=== PATIENT | female | born 1965 | race African-American/Black ===

== ENCOUNTER 2017-01-17 12:02 | Inpatient (IN) | payer OTHER ==
[2017-01-17 13:58] VITALS: BMI 21.5
--- NOTE | 2017-01-17 16:49 | HP ---
[id number] Restless Observation: 1= Difficult to Sit Still Pupil Size: 1= Pupils >than Normal Bone or Joint Aches: 2= Severe Diffuse Aches Runny Nose/ Eye Tearin= Runny Nose/Eyes GI Upset > 30mins: 2= Nausea/Diarrhea Tremor Observation: 2= Slight Tremor Visible Yawning Observation: 0= None Anxiety or Irritability: 2=Irritable/Anxious Goose Flesh Skin: 0=Smooth Skin COWS Score: 13 CIWA Score - CIWA Score Nausea/Vomitin-Mild Nausea/No Vomiting Muscle Tremors: 3 Anxiety: 3 Agitation: 3 Paroxysmal Sweats: 1-Minimal Palms Moist Orientation: 2-Disoriented Date<2 days Tacttile Disturbances: 0-None Auditory Disturbances: 0-None Visual Disturbances: 0-None Headache: 1-Very Mild CIWA-Ar Total Score: 14 Admission ROS S - HPI Chief Complaint: withdrawal sx Allergies/Adverse Reactions: Allergies Allergy/AdvReac Type Severity Reaction Status Date / Time No Known Allergies Allergy Verified 01/17/17 16:40 History of Present Illness: 51 years old female with long history of opiate cocaine nicotine dependence has hypertension treated with unknown medication last dose "3months" ago, has depression is admitted to detox Exam Limitations: No Limitations - Ebola screening Have you traveled outside of the country in the last 21 days: No Have you had contact with anyone from an Ebola affected area: No Have you been sick,other than usual withdrawal symptoms: No Do you have a fever: No - Review of Systems Constitutional: Chills, Loss of Appetite, Changes in sleep, Unintentional Wgt. Loss, Unexplained wgt Loss EENT: reports: Other (needed reading eye glasses) Respiratory: reports: SOB with Exertion Cardiac: reports: No Symptoms Reported GI: reports: Diarrhea, Nausea, Poor Appetite, Poor Fluid Intake, Abdominal cramping : reports: No Symptoms Reported Musculoskeletal: reports: Back Pain, Joint Pain, Muscle Pain, Neck Pain Integumentary: reports: Change in Color (eczema) Neuro: reports: Tremors Endocrine: reports: No Symptoms Reported Hematology: reports: No Symptoms Reported Psychiatric: reports: Judgement Intact, Orientated x3, Depressed Other Systems: Reviewed and Negative Patient History - Patient Medical History Hx Anemia: No Hx Asthma: No Hx Chronic Obstructive Pulmonary Disease (COPD): No Hx Cancer: No Hx Cardiac Disorders: No Hx Congestive Heart Failure: No Hx Hypertension: Yes (135/111 last dose 3 months ago) Hx Hypercholesterolemia: No Hx Pacemaker: No HX Cerebrovascular Accident: No Hx Seizures: No Hx Dementia: No Hx Diabetes: No Hx Gastrointestinal Disorders: No Hx Liver Disease: No Hx Genitourinary Disorders: No Hx Sexually Transmitted Disorders: No Hx Renal Disease (ESRD): No Hx Thyroid Disease: No Hx Human Immunodeficiency Virus (HIV): No Hx Hepatitis C: No Hx Depression: Yes Hx Suicide Attempt: No Hx Bipolar Disorder: No Hx Schizophrenia: No - Patient Surgical History Past Surgical History: Yes Hx Neurologic Surgery: No Hx Cataract Extraction: No Hx Cardiac Surgery: No Hx Lung Surgery: No Hx Breast Surgery: No Hx Breast Biopsy: No Hx Abdominal Surgery: No Hx Appendectomy: No Hx Cholecystectomy: No Hx Genitourinary Surgery: No Hx Section: Yes (x2) Hx Orthopedic Surgery: No Anesthesia Reaction: No - PPD History Previous Implant?: Yes Documented Results: Negative w/o proof Implanted On Prior R Admission?: No PPD to be Administered?: Yes - Reproductive History Patient is a Female of Child Bearing Age (11 -55 yrs old): Yes Last Menstrual Period: 01/12/17 Patient : No - Smoking Cessation Smoking history: Current every day smoker Have you smoked in the past 12 months: Yes Aproximately how many cigarettes per day: 5 Cigars Per Day: 0 Hx Chewing Tobacco Use: No Initiated information on smoking cessation: Yes 'Breaking Loose' booklet given: 01/17/17 - Substance & Tx. History Hx Alcohol Use: Yes Hx Substance Use: Yes Substance Use Type: Alcohol, Cocaine, Heroin Hx Substance Use Treatment: Yes - Substances Abused Alcohol Route: Oral Frequency: Daily Amount used: 2 pints whisky Age of first use: 51 Date of Last Use: 01/16/17 Heroin Route: Inhalation Frequency: Daily Amount used: 10 bags Age of first use: 30 Date of Last Use: 01/17/17 Cocaine Route: Smoking Frequency: Daily Amount used: 20$ Age of first use: 20 Date of Last Use: 01/16/17 Family Disease History - Family Disease History Family Disease History: Diabetes: Mother (), Heart Disease: Mother, CA: Mother, Respiratory: Brother, Other: Father (no contact) Admission Physical Exam BHS - Vital Signs Vital Signs: Vital Signs - 24 hr 01/17/17 13:55 Temperature 96.8 F L Pulse Rate 72 Respiratory 18 Rate Blood Pressure 135/111 - Physical General Appearance: Yes: Appropriately Dressed, Mild Distress, Thin, Tremorous, Irritable, Sweating, Anxious HEENTM: Yes: Hearing grossly Normal, Normal ENT Inspection, Normocephalic, Normal Voice Respiratory: Yes: Chest Non-Tender, No Respiratory Distress, No Accessory Muscle Use, Hyperresonant, Inspiration Neck: Yes: Supple, Trachea in good position Breast: Yes: Breasts Symetrical Cardiology: Yes: Regular Rhythm, Regular Rate, S1, S2 Abdominal: Yes: Non Tender, Soft Genitourinary: Yes: Within Normal Limits Back: Yes: Normal Inspection Musculoskeletal: Yes: full range of Motion, Gait Steady, Back pain Extremities: Yes: Normal Range of Motion, Non-Tender, Tremors Neurological: Yes: Alert, Motor Strength 5/5, Depressed Affect Integumentary: Yes: Warm, Clammy, Other (eczema) Lymphatic: Yes: Within Normal Limits - Diagnostic (1) Alcohol dependence with uncomplicated withdrawal Current Visit: Yes Status: Acute (2) Opioid dependence with withdrawal Current Visit: Yes Status: Acute (3) Cocaine dependence, uncomplicated Current Visit: Yes Status: Chronic (4) Eczema Current Visit: Yes Status: Chronic Qualifiers: Eczema type: flexural Qualified Code(s): L20.82 - Flexural eczema (5) Dry skin Current Visit: Yes Status: Acute (6) History of hypertension Current Visit: Yes Status: Resolved (7) COPD (chronic obstructive pulmonary disease) Current Visit: Yes Status: Chronic Qualifiers: COPD type: emphysema Emphysema type: other Qualified Code(s): 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 - Other emphysema (8) Nicotine dependence Current Visit: Yes Status: Acute Qualifiers: Nicotine product type: cigarettes Substance use status: in withdrawal Qualified Code(s): F17.213 - Nicotine dependence, cigarettes, with withdrawal (9) Weight loss Current Visit: Yes Status: Acute (10) Depression (emotion) Current Visit: Yes Status: Suspected Qualifiers: Depression Type: dysthymia Qualified Code(s): F34.1 - Dysthymic disorder Cleared for Admission [facility] - Detox or Rehab [facility] Level of Care: Medically Managed Detox Regimen/Protocol: Methadone/Librium [facility] Breath Alcohol Content Breath Alcohol Content: 0 Urine Pregancy Test - Result Urine Test Results: Negative- NO Line Present Urine Drug Screen - Results Drug Screen Negative: No Urine Drug Screen Results: MARGARET-Cocaine, OPI-Opiates
[2017-01-17] MEDS ORDERED: diphenhydrAMINE HCL 50 MG CAPSULE PO PRN (17:06)
[2017-01-17] MEDS ORDERED: MAGNESIUM CITRATE 300 ML BOTTLE PO PRN (17:06)
[2017-01-17] MEDS ORDERED: MAGNESIUM HYDROX 2400MG/30ML ORAL SUSPENSION 30 ML CUP PO PRN (17:06)
[2017-01-17] MEDS ORDERED: LOPERAMIDE HCL 2 MG CAPSULE PO PRN (17:06)
[2017-01-17] MEDS ORDERED: MAG HYDROX/AL HYDROX/SIMETH 30 ML UNIT-DOSE CUP PO PRN (17:06)
[2017-01-17] MEDS ORDERED: MENTHOL/PHENOL 1 EACH UD MM PRN (17:06)
[2017-01-17] MEDS ORDERED: P-EPHED 60MG/TRIPROLIDI 2.5MG TABLET PO PRN (17:06)
[2017-01-17] MEDS ORDERED: guaiFENesin/D-METHORPHAN HB 10 ML UNIT-DOSE CUPS PO PRN (17:06)
[2017-01-17] MEDS ORDERED: IBUPROFEN 400 MG TABLET (FP) PO PRN (17:06)
[2017-01-17] MEDS ORDERED: ACETAMINOPHEN 325 MG TABLET (FP) PO PRN (17:06)
[2017-01-17] MEDS ORDERED: NICOTINE POLACRILEX 2 MG GUM BC PRN (17:06)
[2017-01-17] MEDS ORDERED: COLLOIDAL OATMEAL 1 BAR EACH TP PRN (17:09)
[2017-01-17] MEDS: chlordiazePOXIDE HCL 25 MG CAPSULE PO PRN (18:40)
[2017-01-17] MEDS ORDERED: METHADONE HCL 10 MG TABLET (FOR DETOX USE ONLY) PO ONE ×2 (19:00→23:00)
[2017-01-17 20:03] LABS: URINE APPEARANCE CLEAR; URINE BILIRUBIN NEGATIVE (NEGATIVE); URINE BLOOD NEGATIVE (NEGATIVE); URINE COLOR YELLOW; URINE GLUCOSE (UA) NEGATIVE (NEGATIVE); URINE KETONE NEGATIVE (NEGATIVE); URINE LEUK ESTERASE NEGATIVE (NEGATIVE); URINE NITRITE NEGATIVE (NEGATIVE); URINE PROTEIN NEGATIVE (NEGATIVE); URINE UROBILINOGEN 2.0 E.U/dl E.U./dl (0.2-1.0)
[2017-01-17] MEDS: chlordiazePOXIDE HCL 25 MG CAPSULE PO SCH (22:31)
[2017-01-17] MEDS: TRIAMCINOLONE ACET 0.1% OINT 15 GM TUBE TP SCH ×2 (22:32→23:33)
[2017-01-17] MEDS: MINERAL OIL/PETROLAT/WATER TOPICAL CREAM 454 GM JAR TP SCH (22:32)
[2017-01-17] MEDS: THIAMINE HCL 100 MG TABLET (FP) PO SCH (22:37)
[2017-01-18] MEDS ORDERED: METHADONE HCL 10 MG TABLET (FOR DETOX USE ONLY) PO ONE (10:00)
[2017-01-18] MEDS ORDERED: VALSARTAN 80 MG TABLET (UD) PO SCH (10:00)
[2017-01-18] MEDS: PRENATAL VITAMINS W/ FOLIC ACID TABLET (FP) PO SCH (10:49)
[2017-01-18] MEDS: chlordiazePOXIDE HCL 25 MG CAPSULE PO SCH ×4 (10:49→22:30)
[2017-01-18] MEDS: TRIAMCINOLONE ACET 0.1% OINT 15 GM TUBE TP SCH ×3 (10:50→22:29)
--- NOTE | 2017-01-18 11:25 | EKG ---
Test Reason : Blood Pressure : / mmHG Vent. Rate : 069 BPM Atrial Rate : 069 BPM P-R Int : 154 ms QRS Dur : 082 ms QT Int : 420 ms P-R-T Axes : 069 053 051 degrees QTc Int : 450 ms NORMAL SINUS RHYTHM POOR DATA QUALITY, INTERPRETATION MAY BE ADVERSELY AFFECTED Confirmed by KENDRA HIGUERA MD ([id number]) on 01/18/2017 11:25:10 AM Referred By: Rajendra Beltrán Confirmed By:KENDRA HIGUERA MD
[2017-01-18 11:33] LABS: ALBUMIN 4.2 g/dl (3.4-5.0); BILIRUBIN,TOTAL 0.5 mg/dL (0.2-1.0); CALCIUM 9.8 mg/dL (8.5-10.1); COCKROFT - GAULT 69.8785
[2017-01-18 11:34] LABS: MCH 31.2 pg (25.7-33.7); MCHC 32.9 g/dl (32.0-36.0); MEAN CELL VOLUME 94.9 fl (80-96); MEAN PLT VOLUME 9.5 fl (7.5-11.1); PLATELET COUNT 258 K/MM3 (134-434); RDW 13.6 % (11.6-15.6); WHITE BLOOD COUNT 11.3 K/mm3 (4.0-10.0)
[2017-01-18] MEDS: NICOTINE 14 MG/24 HOURS TOPICAL PATCH TD SCH (12:59)
[2017-01-18] MEDS: chlordiazePOXIDE HCL 25 MG CAPSULE PO PRN (13:00)
--- NOTE | 2017-01-18 13:06 | CONSULT ---
[facility] Psychiatric Consult - Data Date of interview: 01/18/17 Admission source: [facility] Identifying data: First admission to [facility] for this 51 y/o AA female seeking detox treatment at [address] [place] [address] for alcohol,cocaine and heroin dependence.Patient is ,a mother of five,domiciled,unemployed and supported on [facility] benefits. Substance Abuse History: - Smoking Cessation. Smoking history: Current every day smoker. Have you smoked in the past 12 months: Yes. Aproximately how many cigarettes per day: 5. Cigars Per Day: 0. Hx Chewing Tobacco Use: No. Initiated information on smoking cessation: Yes. 'Breaking Loose' booklet given : 01/17/17. - Substance & Tx. History. Hx Alcohol Use: Yes. Hx Substance Use : Yes. Substance Use Type: Alcohol, Cocaine, Heroin. Hx Substance Use Treatment: Yes. - Substances Abused. Alcohol. Route: Oral. Frequency: Daily. Amount used: 2 pints whisky. Age of first use: 51. Date of Last Use: 01/16/17. Heroin. Route: Inhalation. Frequency: Daily. Amount used: 10 bags. Age of first use: 30. Date of Last Use: 01/17/17. Cocaine. Route: Smoking. Frequency: Daily. Amount used: 20$. Age of first use: 20. Date of Last Use: 01/16/17. Confirmed by patient. Medical History: Hypertension and a history of two sections. Psychiatric History: Patient denies.No history of exposure to psychotropic medications.Mr Andrade denies prior contact with mental healthcare providers.No reported history of suicide attempts. Physical/Sexual Abuse/Trauma History: Patient denies. Additional Comment: Urine Drug Screen Results: MARGARET-Cocaine, OPI-Opiates.Noted. Mental Status Exam - Mental Status Exam Alert and Oriented to: Time, Place, Person Cognitive Function: Good Patient Appearance: Well Groomed (tall stature) Mood: Anxious, Apprehensive Affect: Mood Congruent Patient Behavior: Fatigued, Cooperative (medication-seeking; pressuring this card writer hand for benzodiazepine or ambien dose above 10 mg ) Speech Pattern: Clear Voice Loudness: Normal Thought Process: Goal Oriented Thought Disorder: Not Present Hallucinations: Denies Suicidal Ideation: Denies Homicidal Ideation: Denies Insight/Judgement: Poor Sleep: Poorly, Difficulty falling asleep Appetite: Good Muscle strength/Tone: Normal Gait/Station: Normal Psychiatric Findings - Problem List ([place] 1, 2,3) (1) Alcohol dependence with uncomplicated withdrawal Current Visit: Yes Status: Acute (2) Opioid dependence with withdrawal Current Visit: Yes Status: Acute (3) Cocaine dependence, uncomplicated Current Visit: Yes Status: Acute (4) Nicotine dependence Current Visit: Yes Status: Acute Qualifiers: Nicotine product type: cigarettes Substance use status: in withdrawal Qualified Code(s): F17.213 - Nicotine dependence, cigarettes, with withdrawal (5) Substance induced mood disorder Current Visit: Yes Status: Acute (6) COPD (chronic obstructive pulmonary disease) Current Visit: Yes Status: Chronic Qualifiers: COPD type: emphysema Emphysema type: other Qualified Code(s): 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
--- NOTE | 2017-01-18 13:14 | PN ---
S CIWA - CIWA Score Nausea/Vomitin Muscle Tremors: 4-Moderate,w/Arms Extend Anxiety: 4-Mod. Anxious/Guarded Agitation: 1-Slight > Activity Paroxysmal Sweats: 4-Forehead w/Sweat Beads Orientation: 0-Oriented Tacttile Disturbances: 1-Very Mild Itch/Numbness Auditory Disturbances: 0-None Visual Disturbances: 3-Moderate Sensitivity Headache: 0-None Present CIWA-Ar Total Score: 19 BHS COWS - Scale Resting Pulse: 0= [place] 80 or Below Sweatin=Flushed/Facial Moisture Restless Observation: 0= Sits Still Pupil Size: 0= Normal to Room Light Bone or Joint Aches: 2= Severe Diffuse Aches Runny Nose/ Eye Tearin= Nasal Congestion GI Upset > 30mins: 2= Nausea/Diarrhea Tremor Observation of Outstretched Hands: 2= Slight Tremor Visible Yawning Observation: 1= 1-2x During Session Anxiety or Irritability: 2=Irritable/Anxious Goose Flesh Skin: 0=Smooth Skin COWS Score: 12 S Progress Note (SOAP) Subjective: Sweating, Poor Appetite, Tremors. Objective: PT. A & O X 3, OBSERVED AMBULATING ON UNIT. 01/18/17 13:10 Vital Signs Temperature 100 F H 01/18/17 12:00 Pulse Rate 76 01/18/17 12:00 Respiratory Rate 20 01/18/17 12:00 Blood Pressure 153/98 01/18/17 12:00 O2 Sat by Pulse Oximetry (%) Laboratory Last Values WBC 11.3 K/mm3 (4.0-10.0) H 01/18/17 06:00 RBC 4.49 M/mm3 (3.60-5.2) 01/18/17 06:00 Hgb 14.0 GM/dL (10.7-15.3) 01/18/17 06:00 Hct 42.6 % (32.4-45.2) 01/18/17 06:00 MCV 94.9 fl (80-96) 01/18/17 06:00 MCHC 32.9 g/dl (32.0-36.0) 01/18/17 06:00 RDW 13.6 % (11.6-15.6) 01/18/17 06:00 Plt Count 258 K/MM3 (134-434) 01/18/17 06:00 MPV 9.5 fl (7.5-11.1) 01/18/17 06:00 Sodium 141 mmol/L (136-145) 01/18/17 06:00 Potassium 4.2 mmol/L (3.5-5.1) 01/18/17 06:00 Chloride 103 mmol/L (98-107) 01/18/17 06:00 Carbon Dioxide 30 mmol/L (21-32) 01/18/17 06:00 Anion Gap 8 (8-16) 01/18/17 06:00 BUN 13 mg/dL (7-18) 01/18/17 06:00 Creatinine 1.0 mg/dL (0.55-1.02) 01/18/17 06:00 Creat Clearance w eGFR 58.00 (>60) 01/18/17 06:00 Random Glucose 58 mg/dL (74-106) L 01/18/17 06:00 Calcium 9.8 mg/dL (8.5-10.1) 01/18/17 06:00 Total Bilirubin 0.5 mg/dL (0.2-1.0) 01/18/17 06:00 AST 12 U/L (15-37) L 01/18/17 06:00 ALT 20 U/L (12-78) 01/18/17 06:00 Alkaline Phosphatase 71 U/L (45-117) 01/18/17 06:00 Total Protein 8.0 g/dl (6.4-8.2) 01/18/17 06:00 Albumin 4.2 g/dl (3.4-5.0) 01/18/17 06:00 Urine Color Yellow 01/17/17 19:30 Urine Appearance Clear 01/17/17 19:30 Urine pH 6.0 (5.0-8.0) 01/17/17 19:30 Ur Specific [place] 1.024 (1.001-1.035) 01/17/17 19:30 Urine Protein Negative (NEGATIVE) 01/17/17 19:30 Urine Glucose (UA) Negative (NEGATIVE) 01/17/17 19:30 Urine Ketones Negative (NEGATIVE) 01/17/17 19:30 Urine Blood Negative (NEGATIVE) 01/17/17 19:30 Urine Nitrite Negative (NEGATIVE) 01/17/17 19:30 Urine Bilirubin Negative (NEGATIVE) 01/17/17 19:30 Urine Urobilinogen 2.0 e.u/dl E.U./dl (0.2-1.0) H 01/17/17 19:30 Ur Leukocyte Esterase Negative (NEGATIVE) 01/17/17 19:30 RPR Titer Nonreactive (NONREACTIVE) 01/18/17 06:00 LABS NOTED. Assessment: 01/18/17 13:11 WITHDRAWAL SYMPTOMS. Plan: CONTINUE DETOX. PT. PREVIOUSLY PRESCRIBED DIOVAN PRIOR TO CURRENT ADMISSION TO DETOX; HOWEVER, SHE REPORTS THAT SHE HAS NOT TAKEN IT FOR THE LAST THREE MONTHS. RE-START DIOVAN AT 80 MG PO DAILY AND CONTINUE TO OBSERVE BP. ADVISED PATIENT TO FOLLOW-UP WITH TOOL ADJUSTER / REHAB MEDICAL PROVIDER AFTER DISCHARGE FROM DETOX FOR GENERAL MEDICAL ASSESSMENT AND FOR ABNORMAL ADMISSION LAB VALUES.
[2017-01-18] MEDS ORDERED: ZOLPIDEM TARTRATE 10 MG TABLET (PARK CARE ONLY) PO PRN (15:50)
[2017-01-18] MEDS: THIAMINE HCL 100 MG TABLET (FP) PO SCH (22:29)
[2017-01-18] MEDS: MINERAL OIL/PETROLAT/WATER TOPICAL CREAM 454 GM JAR TP SCH (22:30)
[2017-01-19] MEDS: chlordiazePOXIDE HCL 25 MG CAPSULE PO SCH ×2 (06:10→11:13)
[2017-01-19] MEDS ORDERED: hydrOXYzine PAMOATE 50 MG CAPSULE (FP) PO PRN (07:05)
[2017-01-19] MEDS ORDERED: cloNIDine HCL 0.1 MG TABLET PO ONE (07:27)
[2017-01-19] MEDS ORDERED: CYCLOBENZAPRINE HCL 10 MG TABLET (FP) PO ONE (07:27)
--- NOTE | 2017-01-19 07:34 | PN ---
S Progress Note Note: withdrawal symptom,pain in the body,back,anxious clonidine 0.1 mg po now then bid flexeril 10 mgs po now then tid prn continue detox methadone and librium.vital signs monitoring
[2017-01-19] MEDS ORDERED: METHADONE HCL 5 MG TABLET (FOR DETOX USE ONLY) PO ONE (10:00)
[2017-01-19] MEDS ORDERED: cloNIDine HCL 0.1 MG TABLET PO SCH (10:00)
[2017-01-19] MEDS ORDERED: VALSARTAN 160 MG TABLET (UD) PO SCH (10:45)
[2017-01-19 10:54] VITALS: BP 134/99; PULSE 86; TEMP 98.2
[2017-01-19] MEDS: TRIAMCINOLONE ACET 0.1% OINT 15 GM TUBE TP SCH ×2 (11:12→11:32)
[2017-01-19] MEDS: PRENATAL VITAMINS W/ FOLIC ACID TABLET (FP) PO SCH (11:12)
[2017-01-19] MEDS: NICOTINE 14 MG/24 HOURS TOPICAL PATCH TD SCH (11:14)
--- NOTE | 2017-01-19 17:37 | DS ---
[facility] Detox Discharge Summary Admission Date: 01/17/17 Discharge Date: 01/19/17 - History Present History: Alcohol Dependence, Cocaine Dependence, Opioid Dependence Additional Comments: ADVISED PATIENT TO FOLLOW-UP WITH [facility] FOR GENERAL MEDICAL ASSESSMENT. Pertinent Past History: HTN, Depression, COPD (Emphysema), Eczema. - Physical Exam Results Vital Signs: Vital Signs Temperature 98.2 F 01/19/17 10:53 Pulse Rate 86 01/19/17 10:53 Respiratory Rate 18 01/19/17 10:53 Blood Pressure 134/99 01/19/17 10:53 O2 Sat by Pulse Oximetry (%) Pertinent Admission Physical Exam Findings: WITHDRAWAL SYMPTOMS. Laboratory Last Values WBC 11.3 K/mm3 (4.0-10.0) H 01/18/17 06:00 RBC 4.49 M/mm3 (3.60-5.2) 01/18/17 06:00 Hgb 14.0 GM/dL (10.7-15.3) 01/18/17 06:00 Hct 42.6 % (32.4-45.2) 01/18/17 06:00 MCV 94.9 fl (80-96) 01/18/17 06:00 MCHC 32.9 g/dl (32.0-36.0) 01/18/17 06:00 RDW 13.6 % (11.6-15.6) 01/18/17 06:00 Plt Count 258 K/MM3 (134-434) 01/18/17 06:00 MPV 9.5 fl (7.5-11.1) 01/18/17 06:00 Sodium 141 mmol/L (136-145) 01/18/17 06:00 Potassium 4.2 mmol/L (3.5-5.1) 01/18/17 06:00 Chloride 103 mmol/L (98-107) 01/18/17 06:00 Carbon Dioxide 30 mmol/L (21-32) 01/18/17 06:00 Anion Gap 8 (8-16) 01/18/17 06:00 BUN 13 mg/dL (7-18) 01/18/17 06:00 Creatinine 1.0 mg/dL (0.55-1.02) 01/18/17 06:00 Creat Clearance w eGFR 58.00 (>60) 01/18/17 06:00 Random Glucose 58 mg/dL (74-106) L 01/18/17 06:00 Calcium 9.8 mg/dL (8.5-10.1) 01/18/17 06:00 Total Bilirubin 0.5 mg/dL (0.2-1.0) 01/18/17 06:00 AST 12 U/L (15-37) L 01/18/17 06:00 ALT 20 U/L (12-78) 01/18/17 06:00 Alkaline Phosphatase 71 U/L (45-117) 01/18/17 06:00 Total Protein 8.0 g/dl (6.4-8.2) 01/18/17 06:00 Albumin 4.2 g/dl (3.4-5.0) 01/18/17 06:00 Urine Color Yellow 01/17/17 19:30 Urine Appearance Clear 01/17/17 19:30 Urine pH 6.0 (5.0-8.0) 01/17/17 19:30 Ur Specific [place] 1.024 (1.001-1.035) 01/17/17 19:30 Urine Protein Negative (NEGATIVE) 01/17/17 19:30 Urine Glucose (UA) Negative (NEGATIVE) 01/17/17 19:30 Urine Ketones Negative (NEGATIVE) 01/17/17 19:30 Urine Blood Negative (NEGATIVE) 01/17/17 19:30 Urine Nitrite Negative (NEGATIVE) 01/17/17 19:30 Urine Bilirubin Negative (NEGATIVE) 01/17/17 19:30 Urine Urobilinogen 2.0 e.u/dl E.U./dl (0.2-1.0) H 01/17/17 19:30 Ur Leukocyte Esterase Negative (NEGATIVE) 01/17/17 19:30 RPR Titer Nonreactive (NONREACTIVE) 01/18/17 06:00 LABS NOTED. - Treatment Hospital Course: Detoxed Safely - Medication Discharge Medications: Ambulatory Orders Unobtainable [Unobtainable] 01/17/17 - Diagnosis (1) Alcohol dependence with uncomplicated withdrawal Status: Acute (2) Nicotine dependence Status: Chronic Qualifiers: Nicotine product type: cigarettes Substance use status: in withdrawal Qualified Code(s): F17.213 - Nicotine dependence, cigarettes, with withdrawal (3) Opioid dependence with withdrawal Status: Acute (4) Substance induced mood disorder Status: Acute (5) Weight loss Status: Acute (6) COPD (chronic obstructive pulmonary disease) Status: Chronic Qualifiers: COPD type: emphysema Emphysema type: other Qualified Code(s): J43.8 - Other emphysema (7) Cocaine dependence, uncomplicated Status: Acute (8) Eczema Status: Chronic Qualifiers: Eczema type: flexural Qualified Code(s): L20.82 - Flexural eczema (9) Depression (emotion) Status: Suspected Qualifiers: Depression Type: dysthymia Qualified Code(s): F34.1 - Dysthymic disorder (10) History of hypertension Status: Chronic - AMA Did Patient Leave Against Medical Advice: Yes (PATIENT DID NOT WANT TO STAY TO COMPLETE DETOX [facility].)
[2017-01-19] MEDS ORDERED: chlordiazePOXIDE 5 MG CAPSULE PO SCH (23:00)
[2017-01-20] MEDS ORDERED: METHADONE HCL 5 MG TABLET (FOR DETOX USE ONLY) PO ONE (10:00)
[2017-01-20] MEDS ORDERED: chlordiazePOXIDE HCL 10 MG CAPSULE PO SCH (23:00)
[2017-01-21] MEDS ORDERED: METHADONE HCL 10 MG TABLET (FOR DETOX USE ONLY) PO ONE (10:00)
[2017-01-22] MEDS ORDERED: METHADONE HCL 5 MG TABLET (FOR DETOX USE ONLY) PO ONE (06:00)
== END 2017-01-19 11:25 | disposition left against medical advice (07) | DRG 894 ==
LOC: YASAS 12:02 → Y6N 17:13
PROVIDERS: ADMIT Internal Medicine Addiction Medicine; ATTEND Internal Medicine Addiction Medicine
PROC: HZ2ZZZZ Detoxification Services for Substance Abuse Treatment (ICD-10-PCS; principal; 2017-01-19)
DX: F11.23 Opioid dependence with withdrawal (principal); F14.20 Cocaine dependence, uncomplicated; F10.230 Alcohol dependence with withdrawal, uncomplicated; F17.213 Nicotine dependence, cigarettes, with withdrawal; F19.24 Other psychoactive substance dependence with psychoactive substance-induced mood disorder; F34.1 Dysthymic disorder; I10 Essential (primary) hypertension; J43.8 Other emphysema; L20.82 Flexural eczema; R63.4 Abnormal weight loss; Z68.21 Body mass index [BMI] 21.0-21.9, adult
CPT/HCPCS: 36415; 71020-TC; 80053; 81003; 85027; 86593; 93005; 93010